=== PATIENT | female | born 1990 | race Caucasian/White ===

== ENCOUNTER → 2021-05-11 | Outpatient (CLI) | payer BC, OTHER ==
[~2021-05-11] MED LIST: ALBU90I INH; ALBU90OI; ALBU90OI INH; ALBU90OI6 INH; AMOX500 PO; AZIT200SU PO; AZIT250 PO; DIPH50 PO; FLUSAL2505; FLUSAL2505 IH; HYDACE5 PO; HYDACE7.5L PO; IBUP200 PO; IBUP400; IBUP800 PO; ONDA4ODT MM; PENVK500 PO; Verotin-Gr Cap1 EACH PO
[2021-05-11 20:39] LABS: Bacteria Mod /hpf; Red Blood Cells, Urine Not Seen /hpf (0-2); Squamous Epithelial Cells Few /hpf (Few); White Blood Cells, Urine 0-2 /hpf (0-5)
== END | disposition home or self-care (01) ==
LOC: LAB SHORT 19:11 → LAB 19:11
PROVIDERS: Obstetrics & Gynecology
DX: Z34.81 Encounter for supervision of other normal pregnancy, first trimester (principal)
CPT/HCPCS: 81015; 87086

== ENCOUNTER → 2021-11-14 | Outpatient (CLI) | payer OTHER ==
[~2021-11-14] MED LIST changes: +ASPI81CH PO; +B12-FOLIC ACID1 EACH PO; +IRON BISGLYCINA28 MG PO
== END | disposition home or self-care (01) ==
LOC: LAB 09:24 → LAB SHORT 09:24
DX: O09.93 Supervision of high risk pregnancy, unspecified, third trimester (principal)
CPT/HCPCS: 87081; 87150

== ENCOUNTER 2021-11-17 23:33 | Inpatient (IN) | payer OTHER ==
[~2021-11-17] VITALS: Ht 154.9 cm; Wt 83.6 kg
[~2021-11-17 23:33] MED LIST changes: -ASPI81CH PO; -B12-FOLIC ACID1 EACH PO; -IRON BISGLYCINA28 MG PO
[2021-11-18] MEDS ORDERED: B12-FOLIC ACID1 EACH PO (01:35)
[2021-11-18] MEDS ORDERED: IRON BISGLYCINA28 MG PO (01:35)
[2021-11-18] MEDS ORDERED: ASPI81CH PO (01:35)
[2021-11-18 01:55] LABS: BASOPHILS ABSOLUTE AUTO 0.04 K/mm3 (0.00-0.23); BASOPHILS PERCENT AUTO 0 % (0-2); EOSINOPHILS ABSOLUTE AUTO 0.02 K/mm3 (0.00-0.68); EOSINOPHILS PERCENT AUTO 0 % (0-6); Hematocrit 41.3 % (33.0-51.0); Hemoglobin 14.6 g/dL (11.5-16.0); IMMATURE GRAN ABSOLUTE AUTO 0.23 K/mm3 (0.00-0.10); IMMATURE GRAN PERCENT AUTO 1 % (0-1); LYMPHOCYTES ABSOLUTE AUTO 1.25 K/mm3 (0.84-5.20); LYMPHOCYTES PERCENT AUTO 6 % (21-46); MONOCYTES ABSOLUTE AUTO 0.89 K/mm3 (0.16-1.47); MONOCYTES PERCENT AUTO 4 % (4-13); Mean Corpuscular HGB 34.5 pg (26.0-34.0); Mean Corpuscular HGB Conc 35.4 g/dL (31.5-36.5); Mean Corpuscular Volume 98 fL (80-100); Mean Platelet Volume 10.9 fL (9.1-12.4); NEUTROPHILS ABSOLUTE AUTO 18.84 K/mm3 (1.96-9.15); NEUTROPHILS PERCENT AUTO 89 % (41-73); Platelet Count 183 K/mm3 (150-400); RDW Coefficient Variation 12.7 % (11.7-14.2); RDW Standard Deviation 44.9 fL (35.1-46.3); Red Blood Cell Count 4.23 M/mm3 (3.80-5.20); White Blood Cell Count 21.27 K/mm3 (4.00-11.30)
[2021-11-18 02:27] LABS: Influenza A, PCR NEGATIVE (NEGATIVE); Influenza B, PCR NEGATIVE (NEGATIVE); Resp Syncytial Virus, PCR NEGATIVE (NEGATIVE); SARS-Cov-2 (COVID-19) PCR, MMC NEGATIVE (NEGATIVE)
[2021-11-18 04:30] LABS: Alanine Aminotransfer (ALT/SGP 134 U/L (12-78); Albumin, Blood 2.7 g/dL (3.4-5.0); Albumin/Globulin Ratio 0.8 (0.8-1.8); Alk Phos 126 U/L (50-136); Anion Gap 10 mmol/L (6-16); Aspartate Aminotrans (AST/SGOT 199 U/L (12-37); Bilirubin, Total 0.6 mg/dL (0.1-1.0); Blood Urea Nitrogen 12 mg/dL (8-24); Bun/Creatinine Ratio 18.3 (12.0-20.0); CO2, Blood 20 mmol/L (21-32); Calcium, Blood 8.7 mg/dL (8.5-10.1); Chloride, Blood 108 mmol/L (98-108); Creatinine, Blood 0.65 mg/dL (0.40-1.00); Globulin, Blood 3.5 g/dL (2.2-4.0); Glomerular Filtration Rate >60 (60-); Glucose, Blood 98 mg/dL (70-99); Potassium, Blood 4.3 mmol/L (3.5-5.5); Sodium, Blood 138 mmol/L (136-145); Total Protein, Blood 6.2 g/dL (6.4-8.2)
[2021-11-18 05:47] LABS: Creatinine, Urine Random 96.9 mg/dL (27.00-270.00); Protein, Urine Random 208.3 mg/dL (0.0-11.9); Protein/Creat Ratio, Ur Random 2.1
[2021-11-18 06:52] LABS: PCO2 Cord - Arterial 59.9 mmHg (40-50); PO2 Cord - Arterial 15.4 mmHg (16-20); pH Cord - Arterial 7.21 (7.28-7.35)
[2021-11-18 06:55] LABS: pH Umbilical Cord - Venous 7.28 (7.26-7.35)
[2021-11-18 06:57] LABS: PO2 Cord - Venous < 14 mmHg (28-32)
[2021-11-19 06:21] LABS: BASOPHILS ABSOLUTE AUTO 0.03 K/mm3 (0.00-0.23); BASOPHILS PERCENT AUTO 0 % (0-2); EOSINOPHILS ABSOLUTE AUTO 0.18 K/mm3 (0.00-0.68); EOSINOPHILS PERCENT AUTO 2 % (0-6); Hematocrit 34.2 % (33.0-51.0); Hemoglobin 12.2 g/dL (11.5-16.0); IMMATURE GRAN ABSOLUTE AUTO 0.09 K/mm3 (0.00-0.10); IMMATURE GRAN PERCENT AUTO 1 % (0-1); LYMPHOCYTES ABSOLUTE AUTO 1.83 K/mm3 (0.84-5.20); LYMPHOCYTES PERCENT AUTO 19 % (21-46); MONOCYTES ABSOLUTE AUTO 0.48 K/mm3 (0.16-1.47); MONOCYTES PERCENT AUTO 5 % (4-13); Mean Corpuscular HGB 35.1 pg (26.0-34.0); Mean Corpuscular HGB Conc 35.7 g/dL (31.5-36.5); Mean Corpuscular Volume 98 fL (80-100); Mean Platelet Volume 10.3 fL (9.1-12.4); NEUTROPHILS ABSOLUTE AUTO 6.87 K/mm3 (1.96-9.15); NEUTROPHILS PERCENT AUTO 73 % (41-73); Platelet Count 84 K/mm3 (150-400); RDW Coefficient Variation 13.1 % (11.7-14.2); Red Blood Cell Count 3.48 M/mm3 (3.80-5.20); White Blood Cell Count 9.48 K/mm3 (4.00-11.30)
[2021-11-20] MEDS ORDERED: ROXICODONE5 MG PO (11:17)
--- NOTE | 2021-11-20 11:30 | NUR ---
DISCHARGE TEACHING COMPLETED PATTIENT VERBALIZING UNDERSTANDING CARE AND FU APPOINTMENT, PT ESCORTED OUT TO CAR WITH AND NB IN CARSEAT
== END 2021-11-20 11:30 | disposition home or self-care (01) | DRG 785 ==
LOC: BC 23:33 → OBS 23:33 → BC 11-18 01:29
PROVIDERS: ADMIT Obstetrics & Gynecology
PROC: 0UT70ZZ Resection of Bilateral Fallopian Tubes, Open Approach (ICD-10-PCS; 2021-11-18)
PROC: 10D00Z1 Extraction of Products of Conception, Low, Open Approach (ICD-10-PCS; principal; 2021-11-18 06:00)
DX: O60.14X0 Preterm labor third trimester with preterm delivery third trimester, not applicable or unspecified (principal); O14.14 Severe pre-eclampsia complicating childbirth; O99.52 Diseases of the respiratory system complicating childbirth; J45.909 Unspecified asthma, uncomplicated; O36.5930 Maternal care for other known or suspected poor fetal growth, third trimester, not applicable or unspecified; Z37.0 Single live birth; O76 Abnormality in fetal heart rate and rhythm complicating labor and delivery; Z20.822 Contact with and (suspected) exposure to COVID-19; Z88.2 Allergy status to sulfonamides; Z88.8 Allergy status to other drugs, medicaments and biological substances; Z88.5 Allergy status to narcotic agent; Z3A.36 36 weeks gestation of pregnancy; Z90.89 Acquired absence of other organs; Z80.9 Family history of malignant neoplasm, unspecified; Z98.890 Other specified postprocedural states
CPT/HCPCS: 0241U; 36415; 51702; 80053; 82570; 82803; 84156; 85025; 86850; 86900; 86901; 88302; 90471; 90707; A9270; J0456; J1580; J1885; J2001; J2370; J2405; J2590; J2704; J2765; J3010; J3475; J7060; J7120

== ENCOUNTER → 2023-02-20 | Outpatient (CLI) | payer OTHER ==
[~2023-02-20] MED LIST changes: +ASPI81CH PO; +B12-FOLIC ACID1 EACH PO; +IRON BISGLYCINA28 MG PO; +ROXICODONE5 MG PO
[2023-02-21 15:10] LABS: HPV 16 Negative (Negative); HPV 18 Negative (Negative); HPV OTHER HR TYPES Negative (Negative)
== END | disposition home or self-care (01) ==
LOC: LAB SHORT 13:50 → LAB 13:50
PROVIDERS: Obstetrics & Gynecology
DX: Z01.419 Encounter for gynecological examination (general) (routine) without abnormal findings (principal)
CPT/HCPCS: 87624; G0145

== ENCOUNTER → 2024-02-28 | Outpatient (CLI) | payer BC ==
[2024-03-07 12:29] LABS: HPV HIGH RISK BY TMA Detected; HPV SOURCE Cervical/Vag
[2024-03-07 22:40] LABS: HPV GENOTYPE 16 BY TMA Not Detected; HPV GENOTYPE 18/45 BY TMA Not Detected; HPVG SOURCE Cervical/Vag
== END ==
LOC: LAB SHORT 13:57 → LAB 13:57
PROVIDERS: Obstetrics & Gynecology
DX: Z01.419 Encounter for gynecological examination (general) (routine) without abnormal findings (principal)
CPT/HCPCS: 87624; 87625; G0123